=== PATIENT | male | born 1980 | race Caucasian/White ===

== ENCOUNTER 2017-10-12 21:27 | Observation (INO) | payer OTHER ==
[~2017-10-12] VITALS: Ht 152.4 cm; Wt 114.0 kg
[2017-10-12 22:17] LABS: BASO # 0.1 (0.0-0.2); BASO % 0.5 % (0.0-2.0); EOS # 0.5 (0.0-0.7); EOS % 3.4 % (0-4.0); GRAN # 7.9 (1.4-6.5); GRAN % 60.2 % (42.2-75.2); HEMATOCRIT 42.3 % (42.0-52.0); LYMPH # 4.1 (1.2-3.4); LYMPH % 30.8 % (20.0-51.0); MEAN CELL VOLUME 88 fl (80.0-100.0); MEAN CORPUSCULAR HEMOGLOBIN 31 pg (27.0-31.0); MEAN CORPUSCULAR HGB CONC 36 g/dl (33.0-37.0); MEAN PLATELET VOLUME 9.4 fl (7.4-10.4); MONO # 0.6 (0.1-0.6); MONO % 4.8 % (1.7-9.3); PLATELET COUNT 242 K/mm3 (130-400); RED BLOOD COUNT 4.82 M/mm3 (4.20-5.60); REDCELL DISTRIBUTION WIDTH-CV 13.8 % (11.5-14.5)
[2017-10-12] MEDS ORDERED: ZESTRIL 20MG TA20 MG PO (22:17)
[2017-10-12] MEDS ORDERED: ZYLOPRIM 100MG100 MG PO (22:17)
[2017-10-12 22:26] LABS: ALBUMIN 4.2 gm/dL (3.5-5.0); BILIRUBIN,TOTAL 0.7 mg/dL (0.0-1.0); CALCIUM 9.5 mg/dL (8.4-10.2); CREATININE, serum 0.88 mg/dL (0.66-1.25); TOTAL PROTEIN 8.5 gm/dL (6.4-8.2)
[2017-10-12 22:34] LABS: C-REACTIVE PROTEIN 3.6 mg/dL (0.0-0.9)
[2017-10-13] VITALS (10 sets, daily range): BP systolic 91–116; BP diastolic 56–69; PULSE 60–78; TEMP 97.4–98.1
[2017-10-13] MEDS ORDERED: NORCO 325 MG-51 TAB PO (17:56)
== END 2017-10-13 18:16 | disposition home or self-care (01) ==
LOC: COL.ER 21:27 → SURG 10-13 00:03
PROVIDERS: Physician Assistant
DX: K35.3 Acute appendicitis with localized peritonitis (principal); I10 Essential (primary) hypertension; G47.33 Obstructive sleep apnea (adult) (pediatric); M10.9 Gout, unspecified; J40 Bronchitis, not specified as acute or chronic; K21.9 Gastro-esophageal reflux disease without esophagitis; Z79.899 Other long term (current) drug therapy
CPT/HCPCS: G0378; J1100; J1170; J1885; J2405; J2543; J2704; J3010; J7030; J7120; Q9967

== ENCOUNTER → 2022-01-10 | Outpatient (CLI) | payer OTHER ==
[~2022-01-10] MED LIST: NORCO 325 MG-51 TAB PO; ZESTRIL 20MG TA20 MG PO; ZYLOPRIM 100MG100 MG PO
[2022-01-10 16:46] LABS: HEMATOCRIT 40.5 % (42.0-52.0); HEMOGLOBIN 13.5 g/dl (13.5-18.0); MEAN CELL VOLUME 85 fl (80.0-100.0); MEAN CORPUSCULAR HEMOGLOBIN 28 pg (27-31); MEAN CORPUSCULAR HGB CONC 33 g/dl (33.0-37.0); MEAN PLATELET VOLUME 9.7 fl (7.4-10.4); PLATELET COUNT 275 K/mm3 (130-400); RED BLOOD COUNT 4.76 M/mm3 (4.20-5.60); REDCELL DISTRIBUTION WIDTH-CV 13.1 % (11.5-14.5)
[2022-01-10 17:00] LABS: CREATININE, serum 1.04 mg/dL (0.72-1.25)
[2022-01-10 17:01] LABS: BILIRUBIN,TOTAL 0.6 mg/dL (0.2-1.2)
== END ==
LOC: COL.LAB 16:19
PROVIDERS: Surgery
DX: C18.0 Malignant neoplasm of cecum (principal)

== ENCOUNTER 2022-01-29 12:13 | Emergency (ER) | payer OTHER ==
[~2022-01-29] VITALS: Ht 175.3 cm; Wt 118.2 kg
[~2022-01-29 12:13] MED LIST changes: +GLUCOSAMIN 500 PO; +MULTI VITAMINS1 TAB PO; +PERCOCET 325 MG1 TA2 PO
[2022-01-29 12:44] VITALS: TEMP 99
[2022-01-29 13:29] LABS: BASO # 0.1 K/mm3 (0.0-0.2); BASO % 0.4 % (0.0-2.0); EOS # 0.4 K/mm3 (0.0-0.7); EOS % 2.7 % (0.0-4.0); GRAN # 9.7 K/mm3 (1.4-6.5); GRAN % 74.5 % (42.2-75.2); HEMOGLOBIN 10.2 g/dl (13.5-18.0); LYMPH # 1.8 K/mm3 (1.2-3.4); LYMPH % 13.5 % (20.0-51.0); MEAN CELL VOLUME 86 fl (80.0-100.0); MEAN CORPUSCULAR HEMOGLOBIN 28 pg (27-31); MEAN CORPUSCULAR HGB CONC 33 g/dl (33.0-37.0); MEAN PLATELET VOLUME 9.6 fl (7.4-10.4); MONO % 7.8 % (1.7-9.3); PLATELET COUNT 335 K/mm3 (130-400); REDCELL DISTRIBUTION WIDTH-CV 13.6 % (11.5-14.5)
[2022-01-29 13:41] LABS: ALBUMIN 3.4 gm/dL (3.5-5.0); BILIRUBIN,TOTAL 1.5 mg/dL (0.2-1.2); CALCIUM 9.4 mg/dL (8.4-10.2); CREATININE, serum 0.73 mg/dL (0.72-1.25); POTASSIUM 3.9 mmol/L (3.5-4.5); TOTAL PROTEIN 7.5 gm/dL (6.2-8.1)
[2022-01-29 14:33] LABS: COLLECTION METHOD CLEAN CATCH
[2022-01-29 14:50] LABS: URINE APPEARANCE Clear (CLEAR/HAZY); URINE BLOOD TRACE-INTACT (NEGATIVE); URINE COLOR Yellow (YELLOW); URINE GLUCOSE Negative (NEGATIVE); URINE KETONE Negative (NEGATIVE); URINE NITRATE Negative (NEGATIVE); URINE PROTEIN(semi-quant) Negative (NEGATIVE); URINE UROBILINOGEN 0.2 E.U/dL (0.2-1.0)
[2022-01-29 14:51] LABS: SQUAMOUS EPITHELIAL None Seen /hpf (0-10); URINE BACTERIA None Seen /hpf (NONE SEEN); URINE RBC None Seen /hpf (0-2)
[2022-01-29] MEDS ORDERED: CIPRO 500MG TA500 MG PO (15:15)
[2022-01-29] MEDS ORDERED: FLAGYL500 MG PO (15:15)
[2022-01-29] MEDS ORDERED: PERCOCET 325 MG1 TA2 PO (15:15)
[2022-01-29 15:45] VITALS: BP 120/79; PULSE 108
== END 2022-01-29 15:49 | disposition home or self-care (01) ==
LOC: COL.ER 12:13
PROVIDERS: Physician Assistant
DX: R10.31 Right lower quadrant pain (principal); Z90.49 Acquired absence of other specified parts of digestive tract; Z85.038 Personal history of other malignant neoplasm of large intestine
CPT/HCPCS: J7030; Q9967

== ENCOUNTER 2022-02-01 08:32 | Emergency (ER) | payer OTHER ==
[~2022-02-01] VITALS: Ht 175.3 cm; Wt 118.2 kg
[~2022-02-01 08:32] MED LIST changes: +CIPRO 500MG TA500 MG PO; +FLAGYL500 MG PO
[2022-02-01 08:39] VITALS: TEMP 97.9
[2022-02-01 09:23] LABS: BASO # 0.1 K/mm3 (0.0-0.2); BASO % 0.6 % (0.0-2.0); EOS # 0.4 K/mm3 (0.0-0.7); EOS % 4.4 % (0.0-4.0); GRAN # 5.8 K/mm3 (1.4-6.5); GRAN % 68.8 % (42.2-75.2); HEMOGLOBIN 10.1 g/dl (13.5-18.0); LYMPH # 1.6 K/mm3 (1.2-3.4); LYMPH % 18.5 % (20.0-51.0); MEAN CELL VOLUME 86 fl (80.0-100.0); MEAN CORPUSCULAR HEMOGLOBIN 28 pg (27-31); MEAN CORPUSCULAR HGB CONC 33 g/dl (33.0-37.0); MEAN PLATELET VOLUME 8.9 fl (7.4-10.4); MONO # 0.6 K/mm3 (0.1-0.6); MONO % 6.8 % (1.7-9.3); PLATELET COUNT 346 K/mm3 (130-400); RED BLOOD COUNT 3.58 M/mm3 (4.20-5.60); REDCELL DISTRIBUTION WIDTH-CV 13.5 % (11.5-14.5)
[2022-02-01 09:25] LABS: HEMATOCRIT 30.7 % (42.0-52.0)
[2022-02-01 09:43] LABS: ALBUMIN 3.3 gm/dL (3.5-5.0); CALCIUM 9.1 mg/dL (8.4-10.2); CREATININE, serum 0.8 mg/dL (0.72-1.25); PHOSPHOROUS 2.4 mg/dL (2.3-4.7); POTASSIUM 3.8 mmol/L (3.5-4.5)
[2022-02-01 10:05] VITALS: BP 107/83; PULSE 76
== END 2022-02-01 10:05 | disposition home or self-care (01) ==
LOC: COL.ER 08:32
PROVIDERS: Emergency Medicine
DX: K91.840 Postprocedural hemorrhage of a digestive system organ or structure following a digestive system procedure (principal); C18.9 Malignant neoplasm of colon, unspecified; Z90.49 Acquired absence of other specified parts of digestive tract